=== PATIENT | male | born 1950 | race Hispanic/Latino ===

== ENCOUNTER → 2021-06-11 | Outpatient (CLI) | payer OTHER, MEDICARE ==
[~2021-06-11] MED LIST: ACET-2079 PO; ADAL40PE5 SQ; ALPR0.5T8 PO; ESOM40CA PO; FINA5TAB41 PO; GABA300C PO; LISI10TA24 PO; SIMV10TA97 PO
== END ==
LOC: RAH 13:01
PROVIDERS: ATTEND Orthopaedic Surgery
DX: M17.11 Unilateral primary osteoarthritis, right knee (principal)
CPT/HCPCS: 73700

== ENCOUNTER 2021-06-12 05:50 | Observation (INO) | payer OTHER, MEDICARE ==
[2021-06-06 14:47] LABS: BASOPHILS % (AUTO) 0.8 % (0.0-5.0); EOSINOPHILS % (AUTO) 3.6 % (0.0-8.0); LYMPHOCYTES % (AUTO) 38.9 % (21.0-51.0); MEAN CORPUSCULAR HEMOGLOBIN 30.8 pg (27.0-33.0); MEAN CORPUSCULAR HGB CONC 32.5 g/dL (32.0-36.0); MEAN CORPUSCULAR VOLUME 94.6 fL (79-99); MONOCYTES % (AUTO) 9.9 % (3.0-13.0); NEUTROPHILS % (AUTO) 46.5 % (40.0-77.0); PLATELET COUNT (AUTO) 260 K/uL (130-400); RED BLOOD CELL COUNT(AUTO) 4.65 MIL/uL (4.50-6.20); RED CELL DISTRIBUTION WIDTH 12.1 % (11.0-15.5); WHITE BLOOD COUNT (AUTO) 7.3 K/uL (4.8-10.8)
[2021-06-06 15:01] LABS: INR 1.06 (0.85-1.15); PROTHROMBIN TIME 11.5 SEC (9.6-11.6)
[2021-06-06 15:03] LABS: PARTIAL THROMBOPLASTIN TIME 29.4 SEC (26.3-35.5); POTASSIUM 4.8 mmol/L (3.5-5.1)
[2021-06-11 09:20] VITALS: BP 142/79
[2021-06-12] VITALS (23 sets, daily range): BP systolic 122–146; BP diastolic 68–93
[~2021-06-12] VITALS: Ht 175.3 cm; Wt 107.3 kg
[2021-06-12] MEDS ORDERED: TRANEXAMIC ACID 3,000 MG in 0.9% NACL 250ML 250 ML TP SCH (06:00)
[2021-06-12] MEDS: CEFAZOLIN SODIUM 1 GM VIAL IVP SCH ×3 (06:00→17:58)
[2021-06-12] MEDS: LACTATED RINGERS 1000ML 1,000 ML IV SCH ×2 (07:20→07:26)
[2021-06-12] MEDS ORDERED: LIDOCAINE PF 100MG/5ML (2%) SYRINGE 5ML ONE (08:06)
[2021-06-12] MEDS ORDERED: MIDAZOLAM HCL 1 MG/ML 2ML VIAL ONE (08:06)
[2021-06-12] MEDS ORDERED: ROCURONIUM 10MG/1ML SYR 10 MG/ML ML ONE ×2 (08:07→10:08)
[2021-06-12] MEDS ORDERED: FENTANYL CITRATE PF 50 MCG/1 ML 2ML VIAL ONE ×2 (08:07→11:11)
[2021-06-12] MEDS ORDERED: PROPOFOL 10 MG/ML 20ML VIAL IV ONE (08:07)
[2021-06-12] MEDS ORDERED: ONDANSETRON 4MG INJ ONE (08:07)
[2021-06-12] MEDS ORDERED: PROPOFOL 1000 MG/100 ML 100 ML IV ONE ×2 (08:12→10:52)
[2021-06-12] MEDS ORDERED: KETAMINE 50MG/ML SYRINGE 50 MG/ML DISP.SYRIN IV ONE (08:12)
[2021-06-12] MEDS ORDERED: ROPIVACAINE 0.5% 5MG/ML 30ML IJ ONE (08:12)
[2021-06-12] MEDS ORDERED: DEXAMETHASONE SOD PHOSPHATE 10MG/ML 1ML VIAL ONE (08:14)
[2021-06-12] MEDS ORDERED: TRANEXAMIC ACID 1000MG/10ML ONE ×3 (08:35→10:32)
[2021-06-12] MEDS ORDERED: CEFAZOLIN SODIUM 1 GM VIAL ONE (09:57)
[2021-06-12] MEDS ORDERED: NEOSTIGMINE 5MG/5ML SYR IV ONE (12:10)
[2021-06-12] MEDS ORDERED: GLYCOPYRROLATE 1 MG/5 ML SYRINGE ONE (12:10)
[2021-06-12] MEDS: ACETAMINOPHEN 500 MG TABLET PO SCH ×2 (12:30→18:07)
[2021-06-12] MEDS ORDERED: ONDANSETRON 4MG INJ IVP PRN (12:30)
[2021-06-12] MEDS ORDERED: ALPRAZOLAM 0.5 MG TABLET PO PRN (12:30)
[2021-06-12] MEDS ORDERED: MEPERIDINE-PF 25 MG/ML SYG ONE (12:53)
[2021-06-12] MEDS: TRAMADOL HCL 50 MG TABLET PO SCH ×3 (17:58→23:37)
[2021-06-12] MEDS: 0.9%NACL 1000ML 1,000 ML IV SCH ×2 (18:09→22:30)
[2021-06-12] MEDS: HYDROCODONE/ACETAMINOPHEN 5/325 MG TAB PO PRN (18:48)
[2021-06-12] MEDS: ASPIRIN 81 MG EC TAB PO SCH (20:44)
[2021-06-12] MEDS: FAMOTIDINE 20MG TAB PO SCH (20:44)
[2021-06-12] MEDS: GABAPENTIN 300 MG CAPSULE PO SCH (20:44)
[2021-06-12] MEDS: MORPHINE 4 MG SYG IVP PRN (20:51)
[2021-06-13] MEDS: CEFAZOLIN SODIUM 1 GM VIAL IVP SCH (00:57)
[2021-06-13] MEDS: ACETAMINOPHEN 500 MG TABLET PO SCH ×3 (02:22→20:55)
[2021-06-13] MEDS: HYDROCODONE/ACETAMINOPHEN 5/325 MG TAB PO PRN (03:59)
[2021-06-13 04:31] LABS: HEMATOCRIT 36.1 % (42-54); MEAN CORPUSCULAR HEMOGLOBIN 30.7 pg (27.0-33.0); MEAN CORPUSCULAR HGB CONC 32.1 g/dL (32.0-36.0); MEAN CORPUSCULAR VOLUME 95.5 fL (79-99); RED BLOOD CELL COUNT(AUTO) 3.78 MIL/uL (4.50-6.20); WHITE BLOOD COUNT (AUTO) 11.8 K/uL (4.8-10.8)
[2021-06-13 04:38] VITALS: BP 98/54
[2021-06-13 04:43] LABS: CREATININE 0.9 mg/dL (0.5-1.5)
[2021-06-13] MEDS: TRAMADOL HCL 50 MG TABLET PO SCH ×3 (05:45→19:03)
[2021-06-13] MEDS: 0.9%NACL 1000ML 1,000 ML IV SCH (08:30)
[2021-06-13 08:58] VITALS: BP 113/70
[2021-06-13] MEDS: GABAPENTIN 300 MG CAPSULE PO SCH ×2 (09:20→20:49)
[2021-06-13] MEDS: ASPIRIN 81 MG EC TAB PO SCH ×2 (09:20→20:49)
[2021-06-13] MEDS: POLYETHYLENE GLYCOL 3350 17 GM POWD.PACK PO SCH (09:20)
[2021-06-13] MEDS: FINASTERIDE 5 MG TABLET PO SCH (09:21)
[2021-06-13] MEDS: FAMOTIDINE 20MG TAB PO SCH ×2 (09:21→20:48)
[2021-06-13] MEDS: PANTOPRAZOLE 40 MG TAB DR PO SCH (09:21)
[2021-06-13] MEDS: LISINOPRIL 10 MG TABLET PO SCH (09:21)
[2021-06-13] MEDS: HYDROCODONE/ACETAMINOPHEN 10/325 MG TAB PO PRN (09:44)
[2021-06-13 11:39] VITALS: BP 112/63
[2021-06-13 16:10] VITALS: BP 124/73
[2021-06-13 19:54] VITALS: BP 138/68
[2021-06-13] MEDS: MORPHINE 4 MG SYG IVP PRN (20:56)
[2021-06-14 00:11] VITALS: BP 124/60
[2021-06-14] MEDS: TRAMADOL HCL 50 MG TABLET PO SCH ×3 (00:13→12:00)
[2021-06-14 03:44] LABS: BASOPHILS % (AUTO) 0.6 % (0.0-5.0); EOSINOPHILS % (AUTO) 0.5 % (0.0-8.0); HEMATOCRIT 33.1 % (42-54); LYMPHOCYTES % (AUTO) 23.9 % (21.0-51.0); MEAN CORPUSCULAR HEMOGLOBIN 31.1 pg (27.0-33.0); MEAN CORPUSCULAR HGB CONC 33.2 g/dL (32.0-36.0); MEAN CORPUSCULAR VOLUME 93.5 fL (79-99); MONOCYTES % (AUTO) 15.9 % (3.0-13.0); NEUTROPHILS % (AUTO) 58.8 % (40.0-77.0); PLATELET COUNT (AUTO) 194 K/uL (130-400); RED BLOOD CELL COUNT(AUTO) 3.54 MIL/uL (4.50-6.20); RED CELL DISTRIBUTION WIDTH 11.9 % (11.0-15.5); WHITE BLOOD COUNT (AUTO) 11.6 K/uL (4.8-10.8)
[2021-06-14 03:45] VITALS: BP 126/71
[2021-06-14 03:58] LABS: CREATININE 0.9 mg/dL (0.5-1.5); POTASSIUM 3.7 mmol/L (3.5-5.1)
[2021-06-14] MEDS: HYDROCODONE/ACETAMINOPHEN 10/325 MG TAB PO PRN (06:10)
[2021-06-14] MEDS: ACETAMINOPHEN 500 MG TABLET PO SCH ×2 (06:13→12:30)
[2021-06-14 07:44] VITALS: BP 148/66
[2021-06-14] MEDS: PANTOPRAZOLE 40 MG TAB DR PO SCH (09:02)
[2021-06-14] MEDS: FINASTERIDE 5 MG TABLET PO SCH (09:02)
[2021-06-14] MEDS: ASPIRIN 81 MG EC TAB PO SCH (09:03)
[2021-06-14] MEDS: LISINOPRIL 10 MG TABLET PO SCH (09:03)
[2021-06-14] MEDS: POLYETHYLENE GLYCOL 3350 17 GM POWD.PACK PO SCH (09:03)
[2021-06-14] MEDS: GABAPENTIN 300 MG CAPSULE PO SCH (09:03)
[2021-06-14] MEDS: MORPHINE 4 MG SYG IVP PRN (09:04)
[2021-06-14] MEDS: FAMOTIDINE 20MG TAB PO SCH (09:16)
[2021-06-14 11:32] VITALS: BP 117/67
[2021-06-15] MEDS ORDERED: BISACODYL 10 MG SUPP.RECT RC PRN (12:30)
== END 2021-06-14 17:34 | disposition home or self-care (01) ==
LOC: DAH 05:50 → DAHIP 05:51 → 4AH 13:22
PROVIDERS: ADMIT Orthopaedic Surgery; ATTEND Orthopaedic Surgery
DX: M17.11 Unilateral primary osteoarthritis, right knee (principal); Z20.822 Contact with and (suspected) exposure to COVID-19; M21.061 Valgus deformity, not elsewhere classified, right knee; I10 Essential (primary) hypertension; E78.00 Pure hypercholesterolemia, unspecified; L40.50 Arthropathic psoriasis, unspecified; E78.5 Hyperlipidemia, unspecified; E66.01 Morbid (severe) obesity due to excess calories; K21.9 Gastro-esophageal reflux disease without esophagitis; K74.60 Unspecified cirrhosis of liver; F41.9 Anxiety disorder, unspecified; Z79.899 Other long term (current) drug therapy
CPT/HCPCS: 0055T; 27447; 36415 ×3; 80048 ×3; 85025 ×2; 85027; 85610; 85730; 87635; 87641; 93005; 96374; 96375; 96376 ×2; 97039 ×4; 97116 ×3; 97161; 97530 ×2; A4215; A4221; A4222; A4223; A4649 ×3; A4663; A4930; C1776; C9803; G0168; G0378 ×51; J0690 ×4; J1100; J2001; J2175; J2250; J2270 ×3; J2405; J2704 ×3; J2710; J2795; J3010 ×2; J3490 ×5; J7030; J7120 ×2; J7050

== ENCOUNTER → 2021-09-19 | Outpatient (CLI) | payer OTHER, MEDICARE ==
[~2021-09-19] MED LIST changes: -ADAL40PE5 SQ
== END | disposition home or self-care (01) ==
LOC: RESP 12:53
PROVIDERS: ATTEND Internal Medicine Cardiovascular Disease
DX: J84.10 Pulmonary fibrosis, unspecified (principal)
CPT/HCPCS: 71250; 94060; 94727; 94729

== ENCOUNTER 2023-09-15 11:00 | Inpatient (IN) | payer OTHER, MEDICARE ==
[~2023-09-15] VITALS: Ht 175.3 cm; Wt 91.2 kg
[~2023-09-15 11:00] MED LIST changes: -ACET-2079 PO; -ALPR0.5T8 PO; -ESOM40CA PO; -FINA5TAB41 PO; -GABA300C PO; +LATA2.5D14 OU; -LISI10TA24 PO; +OMEP40CA21 PO; +PREVAGEN PO; -SIMV10TA97 PO; +UPAD30TA PO
[2023-09-15 11:17] LABS: BASOPHILS # (AUTO) 0.05 K/uL (0.00-0.20); BASOPHILS % (AUTO) 0.9 % (0.0-5.0); EOSINOPHILS # (AUTO) 0.09 K/uL (0.00-0.70); EOSINOPHILS % (AUTO) 1.6 % (0.0-8.0); HEMATOCRIT 38.9 % (42-54); IMMATURE GRANULOCYTE ABSOLUTE 0.01 K/uL (0-1); LYMPHOCYTES # (AUTO) 1.3 K/uL (1.0-4.8); LYMPHOCYTES % (AUTO) 23.9 % (21.0-51.0); MEAN CORPUSCULAR HGB CONC 33.4 g/dL (32.0-36.0); MEAN CORPUSCULAR VOLUME 95.8 fL (79-99); MONOCYTES # (AUTO) 0.5 K/uL (0.1-1.0); MONOCYTES % (AUTO) 9.5 % (3.0-13.0); NEUTROPHILS # (AUTO) 3.5 K/uL (1.8-7.7); NEUTROPHILS % (AUTO) 63.9 % (40.0-77.0); PLATELET COUNT (AUTO) 242 K/uL (130-400); RED BLOOD CELL COUNT(AUTO) 4.06 MIL/uL (4.50-6.20); RED CELL DISTRIBUTION WIDTH 12.2 % (11.0-15.5); WHITE BLOOD COUNT (AUTO) 5.5 K/uL (4.8-10.8)
[2023-09-15 11:37] LABS: ALBUMIN 3.9 g/dL (3.5-5.0); BILIRUBIN,TOTAL 0.6 mg/dL (0.2-1.0); POTASSIUM 4.3 mmol/L (3.5-5.1); TOTAL PROTEIN, SERUM 7.5 g/dL (6.0-8.3)
[2023-09-15 11:56] LABS: INR 1.05 (0.85-1.15); PROTHROMBIN TIME 11.3 SEC (9.6-11.6)
[2023-09-15 12:01] VITALS: BP 133/74; PULSE 59; RESP 17
[2023-09-18] VITALS (25 sets, daily range): BP systolic 114–154; BP diastolic 52–92; PULSE 63–110; RESP 10–20; O2SAT 98–100
[2023-09-18] MEDS: LACTATED RINGERS 1000ML 1,000 ML IV ONE (09:40)
[2023-09-18] MEDS ORDERED: ROPIVACAINE 0.5% 5MG/ML 30ML ONE (10:24)
[2023-09-18] MEDS ORDERED: ONDANSETRON 4MG INJ ONE (10:26)
[2023-09-18] MEDS ORDERED: FENTANYL CITRATE PF 50 MCG/1 ML 2ML VIAL ONE ×3 (10:27→14:03)
[2023-09-18] MEDS ORDERED: ROCURONIUM BROMIDE 10MG/1ML 5ML VL ONE ×2 (10:27→12:39)
[2023-09-18] MEDS ORDERED: MIDAZOLAM HCL 1 MG/ML 2ML VIAL ONE (10:27)
[2023-09-18] MEDS ORDERED: PROPOFOL 10 MG/ML 20ML VIAL IV ONE (10:27)
[2023-09-18] MEDS: CEFOXITIN SODIUM 2 GM VIAL ONE (10:35)
[2023-09-18] MEDS: ZOSYN 3.375GM +NS 50ML IVPB ONE (10:50)
[2023-09-18] MEDS ORDERED: CEFAZOLIN SODIUM 1 GM VIAL ONE (11:42)
[2023-09-18] MEDS ORDERED: EPINEPHRINE 1MG/10ML(1:10,000) 0.1 MG/ML SYG ONE (11:46)
[2023-09-18] MEDS ORDERED: GLYCOPYRROLATE 0.2 MG/ML 5 ML VIAL ONE (13:35)
[2023-09-18] MEDS ORDERED: NEOSTIGMINE METHYLSULFATE 1MG/ML IV ONE (13:36)
[2023-09-18] MEDS ORDERED: LIDOCAINE HCL 2% JELLY 5 ML ONE (13:55)
[2023-09-18] MEDS ORDERED: OXYMETAZOLINE HCL SPRAY 15 ML BOTTLE ONE (13:55)
[2023-09-18] MEDS ORDERED: LISI10TA24 PO (14:31)
[2023-09-18] MEDS: ACETAMINOPHEN 1,000 MG/100 ML VIAL IV ONE (14:50)
[2023-09-18] MEDS: ONDANSETRON 4MG INJ ONE (14:51)
[2023-09-18] MEDS: MEPERIDINE-PF 25 MG/ML SYG ONE ×2 (14:52)
[2023-09-18] MEDS: MORPHINE 2 MG SYG IVP PRN (16:19)
[2023-09-18] MEDS: 0.9%NACL 1000ML 1,000 ML IV SCH (16:33)
[2023-09-18] MEDS: HYDROMORPHONE 1 MG INJ IVP PRN (17:31)
[2023-09-18] MEDS: BENZOCAINE 20% 57 GM SPRAY TP SCH (20:49)
[2023-09-18] MEDS: ONDANSETRON 4MG INJ IVP PRN (20:53)
[2023-09-18] MEDS: ZOSYN 3.375GM +NS 50ML IV SCH (22:07)
[2023-09-19 05:51] LABS: BASOPHILS # (AUTO) 0.03 K/uL (0.00-0.20); BASOPHILS % (AUTO) 0.2 % (0.0-5.0); HEMATOCRIT 34.3 % (42-54); IMMATURE GRANULOCYTE ABSOLUTE 0.04 K/uL (0-1); LYMPHOCYTES # (AUTO) 0.7 K/uL (1.0-4.8); LYMPHOCYTES % (AUTO) 5.3 % (21.0-51.0); MEAN CORPUSCULAR HEMOGLOBIN 32.2 pg (27.0-33.0); MEAN CORPUSCULAR HGB CONC 32.9 g/dL (32.0-36.0); MEAN CORPUSCULAR VOLUME 97.7 fL (79-99); MONOCYTES # (AUTO) 1.1 K/uL (0.1-1.0); MONOCYTES % (AUTO) 9.2 % (3.0-13.0); NEUTROPHILS # (AUTO) 10.5 K/uL (1.8-7.7); PLATELET COUNT (AUTO) 216 K/uL (130-400); RED BLOOD CELL COUNT(AUTO) 3.51 MIL/uL (4.50-6.20); RED CELL DISTRIBUTION WIDTH 12.2 % (11.0-15.5); WHITE BLOOD COUNT (AUTO) 12.4 K/uL (4.8-10.8)
[2023-09-19 06:04] LABS: ALBUMIN 3.2 g/dL (3.5-5.0); BILIRUBIN,TOTAL 1.1 mg/dL (0.2-1.0); MAGNESIUM 1.6 mg/dL (1.80-2.40); PHOSPHORUS 4.8 mg/dL (2.5-4.9); POTASSIUM 4.4 mmol/L (3.5-5.1); TOTAL PROTEIN, SERUM 6.5 g/dL (6.0-8.3)
[2023-09-19 08:00] VITALS: BP 108/68; PULSE 102; RESP 20; O2SAT 100
[2023-09-19] MEDS: ENOXAPARIN SODIUM 40 MG/0.4 ML SYRINGE SQ SCH (08:38)
[2023-09-19] MEDS: PANTOPRAZOLE 40 MG/VIAL IVP SCH (08:38)
[2023-09-19] MEDS ORDERED: MAGNESIUM 2GM PREMIX 50ML 50 ML IV SCH (09:30)
[2023-09-19 12:00] VITALS: BP 109/66; PULSE 107; RESP 20
[2023-09-19 16:00] VITALS: BP 131/75; PULSE 99; RESP 20
[2023-09-19 19:00] VITALS: BP 139/76; PULSE 112; RESP 20
[2023-09-19 20:00] VITALS: O2SAT 95
[2023-09-19] MEDS: ACETAMINOPHEN 325 MG TAB PO PRN (23:23)
[2023-09-20] VITALS (8 sets, daily range): BP systolic 126–143; BP diastolic 71–78; PULSE 89–107; RESP 17–22; O2SAT 94–97
[2023-09-20 06:28] LABS: ALBUMIN 2.9 g/dL (3.5-5.0); BILIRUBIN,TOTAL 0.7 mg/dL (0.2-1.0); CREATININE 0.8 mg/dL (0.5-1.3); MAGNESIUM 1.8 mg/dL (1.80-2.40); POTASSIUM 4.1 mmol/L (3.5-5.1); TOTAL PROTEIN, SERUM 6.2 g/dL (6.0-8.3)
[2023-09-20 06:41] LABS: BASOPHILS # (AUTO) 0.05 K/uL (0.00-0.20); BASOPHILS % (AUTO) 0.5 % (0.0-5.0); EOSINOPHILS # (AUTO) 0.08 K/uL (0.00-0.70); EOSINOPHILS % (AUTO) 0.8 % (0.0-8.0); HEMATOCRIT 27.7 % (42-54); IMMATURE GRANULOCYTE ABSOLUTE 0.04 K/uL (0-1); LYMPHOCYTES % (AUTO) 9.7 % (21.0-51.0); MEAN CORPUSCULAR HGB CONC 32.1 g/dL (32.0-36.0); MEAN CORPUSCULAR VOLUME 99.6 fL (79-99); MONOCYTES % (AUTO) 9.8 % (3.0-13.0); NEUTROPHILS # (AUTO) 8.4 K/uL (1.8-7.7); NEUTROPHILS % (AUTO) 78.8 % (40.0-77.0); PLATELET COUNT (AUTO) 184 K/uL (130-400); RED BLOOD CELL COUNT(AUTO) 2.78 MIL/uL (4.50-6.20); RED CELL DISTRIBUTION WIDTH 12.3 % (11.0-15.5); WHITE BLOOD COUNT (AUTO) 10.7 K/uL (4.8-10.8)
[2023-09-20] MEDS: KETOROLAC 15MG/ML VIAL (15MG/ML) IM PRN (09:03)
[2023-09-20] MEDS ORDERED: HYDROMORPHONE 1 MG INJ IVP PRN (11:30)
[2023-09-20] MEDS: ZOSYN 3.375GM+NS 50ML 50 ML ONE (17:27)
[2023-09-20] MEDS: MELATONIN 5 MG TABLET PO PRN (20:19)
[2023-09-21] VITALS (8 sets, daily range): BP systolic 124–144; BP diastolic 68–77; PULSE 89–97; RESP 18–20; O2SAT 97–98
[2023-09-21 05:19] LABS: BASOPHILS # (AUTO) 0.05 K/uL (0.00-0.20); BASOPHILS % (AUTO) 0.6 % (0.0-5.0); EOSINOPHILS # (AUTO) 0.37 K/uL (0.00-0.70); EOSINOPHILS % (AUTO) 4.1 % (0.0-8.0); HEMATOCRIT 24.8 % (42-54); IMMATURE GRANULOCYTE ABSOLUTE 0.04 K/uL (0-1); LYMPHOCYTES % (AUTO) 11.4 % (21.0-51.0); MEAN CORPUSCULAR HEMOGLOBIN 31.5 pg (27.0-33.0); MEAN CORPUSCULAR HGB CONC 32.3 g/dL (32.0-36.0); MEAN CORPUSCULAR VOLUME 97.6 fL (79-99); MONOCYTES # (AUTO) 0.8 K/uL (0.1-1.0); MONOCYTES % (AUTO) 8.7 % (3.0-13.0); NEUTROPHILS # (AUTO) 6.8 K/uL (1.8-7.7); NEUTROPHILS % (AUTO) 74.8 % (40.0-77.0); PLATELET COUNT (AUTO) 177 K/uL (130-400); RED BLOOD CELL COUNT(AUTO) 2.54 MIL/uL (4.50-6.20); RED CELL DISTRIBUTION WIDTH 12.2 % (11.0-15.5); WHITE BLOOD COUNT (AUTO) 9.1 K/uL (4.8-10.8)
[2023-09-21 05:38] LABS: ALBUMIN 2.7 g/dL (3.5-5.0); BILIRUBIN,TOTAL 0.6 mg/dL (0.2-1.0); CREATININE 0.9 mg/dL (0.5-1.3); POTASSIUM 3.7 mmol/L (3.5-5.1)
[2023-09-21] MEDS ORDERED: POTASSIUM CHLORIDE 10% ELIXIR 20 MEQ/15 ML UDCUP PO PRN (06:30)
[2023-09-21] MEDS ORDERED: POTASSIUM CHLORIDE 20MEQ/100ML 100 ML IV PRN (06:30)
[2023-09-21] MEDS ORDERED: MAGNESIUM 2GM PREMIX 50ML 50 ML IV PRN (06:30)
[2023-09-21] MEDS ORDERED: KCL 20 MEQ ERTAB PO PRN (06:30)
[2023-09-22] VITALS (7 sets, daily range): BP systolic 126–146; BP diastolic 65–80; PULSE 88–104; RESP 17–20; O2SAT 96–98
[2023-09-22 04:22] LABS: BASOPHILS # (AUTO) 0.03 K/uL (0.00-0.20); BASOPHILS % (AUTO) 0.5 % (0.0-5.0); EOSINOPHILS # (AUTO) 0.35 K/uL (0.00-0.70); EOSINOPHILS % (AUTO) 5.6 % (0.0-8.0); HEMATOCRIT 24.4 % (42-54); IMMATURE GRANULOCYTE ABSOLUTE 0.03 K/uL (0-1); LYMPHOCYTES # (AUTO) 1.1 K/uL (1.0-4.8); LYMPHOCYTES % (AUTO) 18.3 % (21.0-51.0); MEAN CORPUSCULAR HEMOGLOBIN 32.8 pg (27.0-33.0); MEAN CORPUSCULAR HGB CONC 34.4 g/dL (32.0-36.0); MEAN CORPUSCULAR VOLUME 95.3 fL (79-99); MONOCYTES # (AUTO) 0.6 K/uL (0.1-1.0); MONOCYTES % (AUTO) 10.1 % (3.0-13.0); NEUTROPHILS # (AUTO) 4.1 K/uL (1.8-7.7); PLATELET COUNT (AUTO) 199 K/uL (130-400); RED BLOOD CELL COUNT(AUTO) 2.56 MIL/uL (4.50-6.20); RED CELL DISTRIBUTION WIDTH 12.2 % (11.0-15.5); WHITE BLOOD COUNT (AUTO) 6.2 K/uL (4.8-10.8)
[2023-09-22 05:00] LABS: ALBUMIN 2.9 g/dL (3.5-5.0); BILIRUBIN,TOTAL 0.8 mg/dL (0.2-1.0); CREATININE 0.9 mg/dL (0.5-1.3); TOTAL PROTEIN, SERUM 6.3 g/dL (6.0-8.3)
[2023-09-22 05:18] LABS: POTASSIUM 2.9 mmol/L (3.5-5.1)
[2023-09-22] MEDS ORDERED: KCL 20 MEQ ERTAB PO PRN (08:00)
[2023-09-22] MEDS: POTASSIUM CHLORIDE 20MEQ/100ML 100 ML IV PRN (08:15)
[2023-09-22] MEDS: POTASSIUM CHLORIDE 10% ELIXIR 20 MEQ/15 ML UDCUP PO PRN (09:24)
[2023-09-23] VITALS: BP 131/73; PULSE 85; RESP 17
[2023-09-23 04:00] VITALS: BP 131/75; PULSE 87; RESP 17
[2023-09-23 05:21] LABS: BASOPHILS # (AUTO) 0.03 K/uL (0.00-0.20); BASOPHILS % (AUTO) 0.5 % (0.0-5.0); EOSINOPHILS # (AUTO) 0.34 K/uL (0.00-0.70); EOSINOPHILS % (AUTO) 5.7 % (0.0-8.0); HEMATOCRIT 24.6 % (42-54); IMMATURE GRANULOCYTE ABSOLUTE 0.03 K/uL (0-1); LYMPHOCYTES # (AUTO) 0.9 K/uL (1.0-4.8); LYMPHOCYTES % (AUTO) 15.8 % (21.0-51.0); MEAN CORPUSCULAR HEMOGLOBIN 31.5 pg (27.0-33.0); MEAN CORPUSCULAR HGB CONC 33.3 g/dL (32.0-36.0); MEAN CORPUSCULAR VOLUME 94.6 fL (79-99); MONOCYTES # (AUTO) 0.7 K/uL (0.1-1.0); MONOCYTES % (AUTO) 12.3 % (3.0-13.0); NEUTROPHILS # (AUTO) 3.9 K/uL (1.8-7.7); NEUTROPHILS % (AUTO) 65.2 % (40.0-77.0); PLATELET COUNT (AUTO) 228 K/uL (130-400); RED CELL DISTRIBUTION WIDTH 12.3 % (11.0-15.5); WHITE BLOOD COUNT (AUTO) 5.9 K/uL (4.8-10.8)
[2023-09-23 05:40] LABS: ALBUMIN 2.8 g/dL (3.5-5.0); BILIRUBIN,TOTAL 0.8 mg/dL (0.2-1.0); CREATININE 0.8 mg/dL (0.5-1.3); MAGNESIUM 1.7 mg/dL (1.80-2.40); POTASSIUM 3.7 mmol/L (3.5-5.1); TOTAL PROTEIN, SERUM 6.3 g/dL (6.0-8.3)
[2023-09-23 07:17] VITALS: O2SAT 96
[2023-09-23 09:01] VITALS: BP 126/72; PULSE 92; RESP 16
[2023-09-23] MEDS ORDERED: LEVO750T68 PO (09:39)
[2023-09-23] MEDS ORDERED: MAGNESIUM 2GM PREMIX 50ML 50 ML IV SCH (10:00)
[2023-09-23 11:26] VITALS: BP 126/76; PULSE 85; RESP 16
== END 2023-09-23 15:40 | disposition home health service (06) | DRG 330 ==
LOC: DAHIP 09-18 08:48 → 3BH 09-18 15:50
PROVIDERS: ADMIT Surgery; ATTEND Surgery
PROC: 3E0M05Z Introduction of Adhesion Barrier into Peritoneal Cavity, Open Approach (ICD-10-PCS; 2023-09-18)
PROC: 0DBE0ZZ Excision of Large Intestine, Open Approach (ICD-10-PCS; principal; 2023-09-18 10:49)
PROC: 0DNW0ZZ Release Peritoneum, Open Approach (ICD-10-PCS; 2023-09-18 10:49)
DX: Z43.3 Encounter for attention to colostomy (principal); K56.7 Ileus, unspecified; K57.80 Diverticulitis of intestine, part unspecified, with perforation and abscess without bleeding; R51.9 Headache, unspecified; K66.0 Peritoneal adhesions (postprocedural) (postinfection); Z96.653 Presence of artificial knee joint, bilateral; K21.9 Gastro-esophageal reflux disease without esophagitis
CPT/HCPCS: 36415; 80053; 82948; 83735; 84100; 85025; 85610; 88304; 93005; A4344; A6407; G0378; J0171; J0690; J0694; J1170; J1650; J1885; J2175; J2250; J2270; J2405; J2470; J2543; J2704; J2710; J2795; J3010; J3480; J3490; J7120; A4215; A4221; A4222; A4223; A4452; A4600; A4649; A4663; A4930; A6260

== ENCOUNTER → 2023-09-30 | Outpatient (CLI) | payer OTHER, MEDICARE ==
[~2023-09-30] MED LIST changes: +LEVO750T68 PO; +LISI10TA24 PO
== END | disposition home or self-care (01) ==
LOC: WHH 08:06
PROVIDERS: ATTEND Family Medicine
DX: T81.31XA Disruption of external operation (surgical) wound, not elsewhere classified, initial encounter (principal); S31.105A Unspecified open wound of abdominal wall, periumbilic region without penetration into peritoneal cavity, initial encounter; I10 Essential (primary) hypertension; K21.9 Gastro-esophageal reflux disease without esophagitis; F41.9 Anxiety disorder, unspecified; M19.90 Unspecified osteoarthritis, unspecified site; Z87.891 Personal history of nicotine dependence; X58.XXXA Exposure to other specified factors, initial encounter; Y83.8 Other surgical procedures as the cause of abnormal reaction of the patient, or of later complication, without mention of misadventure at the time of the procedure; Y82.8 Other medical devices associated with adverse incidents; Y93.89 Activity, other specified; Y92.89 Other specified places as the place of occurrence of the external cause; Y99.8 Other external cause status
CPT/HCPCS: G0463